=== PATIENT | female | born 1985 | race Caucasian/White ===

== ENCOUNTER 2017-01-25 08:24 | Emergency (ER) | payer MEDICAID ==
[~2017-01-25] VITALS: Ht 157.5 cm; Wt 98.1 kg
[2017-01-25 09:26] VITALS: BP 131/73
== END 2017-01-25 09:24 | disposition home or self-care (01) ==
LOC: ED 08:24
DX: N39.0 Urinary tract infection, site not specified (principal)

== ENCOUNTER 2017-02-07 13:47 | Emergency (ER) | payer MEDICAID ==
[~2017-02-07] VITALS: Ht 154.9 cm; Wt 95.2 kg
[2017-02-07 15:40] VITALS: BP 116/72
== END 2017-02-07 15:40 | disposition home or self-care (01) ==
LOC: ED 13:47
DX: I83.93 Asymptomatic varicose veins of bilateral lower extremities (principal); E66.9 Obesity, unspecified

== ENCOUNTER 2018-07-28 00:54 | Emergency (ER) | payer MEDICAID ==
[~2018-07-28] VITALS: Ht 157.5 cm; Wt 93.9 kg
[2018-07-28 01:07] VITALS: Ht 157.5 cm; Wt 93.9 kg
[2018-07-28 01:51] LABS: BASOPHIL % 0.6 % (0-2); PLATELET COUNT 304 x10^3mcL (130-400); RED CELL DISTRIBUTION WIDTH 13.6 % (11.5-14.5)
[2018-07-28 02:02] LABS: CALCIUM 8.8 mg/dL (8.5-10.1); CARBON DIOXIDE 32.9 mmol/L (21-32); CHLORIDE SERUM 104 mmol/L (98-107); CREATININE SERUM 0.9 mg/dL (0.6-1.0); GFR1 > 60 mL/min; GLUCOSE SERUM 116 mg/dL (74-106); POTASSIUM SERUM 3.5 mmol/L (3.5-5.1); SODIUM SERUM 141 mmol/L (136-145)
[2018-07-28 02:03] LABS: ALBUMIN 3.6 g/dL (3.4-5.0); ALKALINE PHOSPHATASE 101 U/L (46-116); ALT/SGPT 23 U/L (14-59); AMYLASE 49 U/L (25-115); AST/SGOT 15 U/L (15-37); BILIRUBIN TOTAL 0.22 mg/dL (0.20-1.00); LIPASE 197 IU/L (73-393); TOTAL PROTEIN, SERUM 7.7 g/dL (6.4-8.2)
[2018-07-28 03:16] VITALS: BP 120/73
== END 2018-07-28 03:16 | disposition home or self-care (01) ==
LOC: ED 00:54
PROVIDERS: Emergency Medicine
DX: K80.50 Calculus of bile duct without cholangitis or cholecystitis without obstruction (principal)
CPT/HCPCS: 36415; J1885; J3010; Q0162

== ENCOUNTER 2020-02-28 10:29 | Emergency (ER) | payer MEDICAID ==
[~2020-02-28] VITALS: Ht 157.5 cm; Wt 91.2 kg
[2020-02-28 10:52] VITALS: Ht 157.5 cm; Wt 91.2 kg
[2020-02-28 12:21] LABS: BASOPHIL % 0.5 % (0-2); PLATELET COUNT 298 x10^3mcL (130-400); RED CELL DISTRIBUTION WIDTH 14.2 % (11.5-14.5)
[2020-02-28 12:26] LABS: CARBON DIOXIDE 29.8 mmol/L (21-32); CHLORIDE SERUM 103 mmol/L (98-107); CREATININE SERUM 0.7 mg/dL (0.6-1.0); GFR1 > 60 mL/min; GLUCOSE SERUM 91 mg/dL (74-106); SODIUM SERUM 140 mmol/L (136-145)
[2020-02-28 12:30] LABS: ALBUMIN 3.5 g/dL (3.4-5.0); ALKALINE PHOSPHATASE 109 U/L (46-116); AST/SGOT 14 U/L (15-37); BILIRUBIN TOTAL 0.27 mg/dL (0.20-1.00); LIPASE 155 IU/L (73-393); TOTAL PROTEIN, SERUM 7.7 g/dL (6.4-8.2)
[2020-02-28 12:49] LABS: ALT/SGPT 21 U/L (14-59)
[2020-02-28 14:21] VITALS: BP 117/74
== END 2020-02-28 14:21 | disposition home or self-care (01) ==
LOC: ED 10:29
PROVIDERS: Emergency Medicine
DX: K80.50 Calculus of bile duct without cholangitis or cholecystitis without obstruction (principal)
CPT/HCPCS: Q0092